=== PATIENT | female | born 1965 | race Caucasian/White ===

== ENCOUNTER 2021-05-29 19:06 | Emergency (ER) | payer OTHER ==
--- NOTE | 2021-05-29 19:40 | Diagnostic Imaging Report ---
CHEST 1 VIEW, AP/PA ONLY Indication: Cough Comparison: None available. Findings: No focal airspace disease in the visualized lungs. Please note that the posterior lower lobes are poorly evaluated by portable radiography. No pleural effusion or pneumothorax. Normal cardiomediastinal silhouette. Azygous fissure is noted in the medial aspect right upper lung zone. Impression: 1. No acute cardiopulmonary process by portable radiography. Dictated by: Dictated on workstation # [id number]
[2021-05-29] MEDS: LACTATED RINGERS 1,000 ML IV ONE (19:43)
[2021-05-29 19:48] LABS: BASOPHILS # (AUTO) 0.1 10^3/uL (0.0-0.1); BASOPHILS % (AUTO) 1 % (0-10); EOSINOPHILS # (AUTO) 0.3 10^3/uL (0.0-0.3); EOSINOPHILS % (AUTO) 2 % (0-10); HEMATOCRIT 40 % (35-52); HEMOGLOBIN 13.2 g/dL (11.5-16.0); LYMPHOCYTES # (AUTO) 3.7 10^3/uL (1.0-4.0); LYMPHOCYTES % (AUTO) 36 % (12-44); MEAN CORPUSCULAR HEMOGLOBIN 31 pg (25-34); MEAN CORPUSCULAR HGB CONC 33 g/dL (32-36); MEAN CORPUSCULAR VOLUME 94 fL (80-99); MEAN PLATELET VOLUME 9.7 fL (9.0-12.2); MONOCYTES % (AUTO) 10 % (0-12); NEUTROPHILS # (AUTO) 5.3 10^3/uL (1.8-7.8); NEUTROPHILS % (AUTO) 51 % (42-75); PLATELET COUNT 402 10^3/uL (130-400); WHITE BLOOD COUNT 10.3 10^3/uL (4.3-11.0)
[2021-05-29 19:56] LABS: ALBUMIN 4.1 GM/DL (3.2-4.5)
[2021-05-29 19:57] LABS: CHLORIDE 105 MMOL/L (98-107); POTASSIUM 3.9 MMOL/L (3.6-5.0); SODIUM 144 MMOL/L (135-145)
[2021-05-29 19:58] LABS: CALCIUM 9.9 MG/DL (8.5-10.1)
[2021-05-29 19:59] LABS: GLUCOSE 101 MG/DL (70-105)
[2021-05-29 20:00] LABS: CARBON DIOXIDE 27 MMOL/L (21-32)
[2021-05-29 20:01] LABS: BILIRUBIN,TOTAL 0.3 MG/DL (0.1-1.0)
[2021-05-29 20:02] LABS: ALKALINE PHOSPHATASE 78 U/L (40-136)
[2021-05-29 20:03] LABS: CREATININE SERUM 0.74 MG/DL (0.60-1.30); GFR ESTIMATED 82
[2021-05-29 20:04] LABS: BUN/CREATININE RATIO 16
[2021-05-29 20:05] LABS: MAGNESIUM 1.8 MG/DL (1.6-2.4)
[2021-05-29 20:06] LABS: ALANINE AMINOTRANSFERASE 21 U/L (0-55)
--- NOTE | 2021-05-29 20:51 | ED Respiratory ---
General Chief Complaint: Cough/Cold/Flu Symptoms Stated Complaint: COUGH / SOA / CP / O2: 80S Nursing Triage Note: TO ED VIA POV AND AMBULATORY TO ROOM 10 NEGATIVE PRESSURE FOR COVID PUI PRECAUTIONS R/T PERSISTANT COUGH FOR 3 WEEKS. PT STATES SHE HAS TRIED TESSLON PERLES, OTC MEDS WITHOUT RELIEF. PT HAS BEEN FULLY VACCINATED SINCE SEPTEMBER 2020 AND DOES CURRENTLY WORK IN A [employer] IN [place], [place]. PT DENIES CONTINUOUS CP, BUT CHEST DISCOMFORT WITH COUGHING. Source: patient Exam Limitations: no limitations History of Present Illness Date Seen by Provider: May 29, 2021 Time Seen by Provider: 19:22 Initial Comments Here with report of cough for the last 3 weeks but worsened over the last s everal days. She has had a negative Covid test 3 weeks ago. She does work in a [place] [facility] and they did have an outbreak there but she has remained clear throughout that. She was vaccinated in September. Does have history of asthma and bronchitis. Denies fever currently. States appetite down but she is still drinking. She retains taste and smell. Does complain of central chest discomfort with cough. Denies vomiting or diarrhea. Timing/Duration: getting worse, other (3 weeks) Severity: moderate Prior Episodes/Possible Cause: occasional episodes Modifying Factors: Worse With Coughing; Improves With Rest Associated Symptoms: chest pain/soreness, cough; No fever/chills, No muscle aches; nasal congestion, shortness of breath, sore throat Allergies and Home Medications Allergies Coded Allergies: acetaminophen (Verified Allergy, Unknown, 05/29/21) alprazolam (Verified Allergy, Unknown, 05/29/21) amlodipine (Verified Allergy, Unknown, 05/29/21) bacitracin (Verified Allergy, Unknown, 05/29/21) carvedilol (Verified Allergy, Unknown, 05/29/21) neomycin (Verified Allergy, Unknown, 05/29/21) polymyxin B (Verified Allergy, Unknown, 05/29/21) tramadol (Verified Allergy, Unknown, 05/29/21) Patient Home Medication List Home Medication List Reviewed: Yes Prednisone (Prednisone) 20 Mg Tab, 40 MG PO DAILY Prescribed by: BETO GONZALEZ on 05/29/212051 Review of Systems Review of Systems Constitutional: see HPI EENTM: see HPI Respiratory: cough, short of breath Cardiovascular: no symptoms reported Gastrointestinal: no symptoms reported Genitourinary: no symptoms reported Musculoskeletal: no symptoms reported All Other Systems Reviewed Negative Unless Noted: Yes Past Pliahqi-Jktlfv-Ubusat Hx Patient Social History Tobacco Use?: No Substance use?: No Alcohol Use?: No Immunizations Up To Date Second COVID19 Vaccination [place]: SEPTEMBER 2020 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 oz. kg; BMI Method: General Appearance: WD/WN, no apparent distress HEENT: PERRL/EOMI, pharynx normal Neck: full range of motion, supple Respiratory: lungs clear, normal breath sounds, other (Coarse breath sounds with cough) Cardiovascular: no murmur, tachycardia Gastrointestinal: non tender, soft Extremities: non-tender, normal inspection Neurologic/Psychiatric: alert, oriented x 3 Skin: normal color, warm/dry Progress/Results/Core Measures Suspected Sepsis SIRS Temperature: Pulse: 115 Respiratory Rate: 20 Laboratory Tests 05/29/21 19:30: White Blood Count 10.3 Blood Pressure 184 /96 Mean: 125 Laboratory Tests 05/29/21 19:30: Creatinine 0.74, Platelet Count 402H, Total Bilirubin 0.3 Results/Orders Lab Results Laboratory Tests Test 05/29/21 19:30 05/29/21 19:33 Range/Units White Blood Count 10.3 4.3-11.0 10^3/uL Red Blood Count 4.21 3.80-5.11 10^6/uL Hemoglobin 13.2 11.5-16.0 g/dL Hematocrit 40 35-52 % Mean Corpuscular Volume 94 80-99 fL Mean Corpuscular Hemoglobin 31 25-34 pg Mean Corpuscular Hemoglobin Concent 33 32-36 g/dL Red Cell Distribution Width 12.2 10.0-14.5 % Platelet Count 402 H 130-400 10^3/uL Mean Platelet Volume 9.7 9.0-12.2 fL Immature Granulocyte % (Auto) 0 % Neutrophils (%) (Auto) 51 42-75 % Lymphocytes (%) (Auto) 36 12-44 % Monocytes (%) (Auto) 10 0-12 % Eosinophils (%) (Auto) 2 0-10 % Basophils (%) (Auto) 1 0-10 % Neutrophils # (Auto) 5.3 1.8-7.8 10^3/uL Lymphocytes # (Auto) 3.7 1.0-4.0 10^3/uL Monocytes # (Auto) 1.0 0.0-1.0 10^3/uL Eosinophils # (Auto) 0.3 0.0-0.3 10^3/uL Basophils # (Auto) 0.1 0.0-0.1 10^3/uL Immature Granulocyte # (Auto) 0.0 0.0-0.1 10^3/uL D-Dimer < 0.27 0.00-0.49 UG/ML Sodium Level 144 135-145 MMOL/L Potassium Level 3.9 3.6-5.0 MMOL/L Chloride Level 105 98-107 MMOL/L Carbon Dioxide Level 27 21-32 MMOL/L Anion Gap 12 5-14 MMOL/L Blood Urea Nitrogen 12 7-18 MG/DL Creatinine 0.74 0.60-1.30 MG/DL Estimat Glomerular Filtration Rate 82 BUN/Creatinine Ratio 16 Glucose Level 101 70-105 MG/DL Calcium Level 9.9 8.5-10.1 MG/DL Corrected Calcium 9.8 8.5-10.1 MG/DL Magnesium Level 1.8 1.6-2.4 MG/DL Total Bilirubin 0.3 0.1-1.0 MG/DL Aspartate Amino Transf (AST/SGOT) 18 5-34 U/L Alanine Aminotransferase (ALT/SGPT) 21 0-55 U/L Alkaline Phosphatase 78 40-136 U/L Troponin I < 0.028 <0.028 NG/ML C-Reactive Protein High Sensitivity 2.22 H 0.00-0.50 MG/DL Total Protein 8.0 6.4-8.2 GM/DL Albumin 4.1 3.2-4.5 GM/DL My Orders Orders - BETO GONZALEZ MD Cbc With Automated Diff (05/29/21 19:31) Comprehensive Metabolic Panel (05/29/21 19:31) Hs C Reactive Protein (05/29/21 19:31) Fibrin Degradation Products (05/29/21 19:31) Magnesium (05/29/21 19:31) Troponin I (05/29/21 19:31) Ed Iv/Invasive Line Start (05/29/21 19:31) Lactated Ringers (Lr 1000 Ml Iv Solution (05/29/21 19:45) Ekg Tracing (05/29/21 19:31) Coronavirus Sars-Cov-2 So 2018 (05/29/21 19:31) Prednisone Tablet (Deltasone Tablet) (05/29/21 20:45) Rx-Albuterol Inhaler (Rx-Ventolin Hfa In (05/29/21 20:45) Medications Given in ED Current Medications Medications Dose Ordered Sig/Alia Route Start Time Stop Time Status Last Admin Dose Admin Lactated Ringer's 1,000 ml @ 0 mls/hr Q0M ONCE IV 05/29/21 19:45 05/29/21 19:46 DC 05/29/21 19:43 999 MLS/HR Vital Signs/I&O 05/29/21 19:14 Temp 37.0 Pulse 115 Resp 20 B/P (MAP) 184/96 (125) Pulse Ox 98 O2 Delivery Room Air Capillary Refill : Less Than 3 Seconds Blood Pressure Mean: 125 Progress Note : Progress Note Seen and evaluated. IV, labs, LR 1 L bolus, Covid test send out ordered. EKG ordered. Monitor patient. 2048: EKG negative. Labs do not show any significant abnormalities. Covid test pending. Chest x-ray normal. Prednisone 40 mg p.o. ordered and we will continue that for 4 more days. Albuterol MDI go pack given. I did give her instructions regarding PUI for COVID-19. Discharged home with return precautions. Patient verbalized understanding of instructions and agreement with plan. Diagnostic Imaging Diagonstic Imaging: Xray Plain Films/CT/US/NM/MRI: chest Comments [facility]. 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 Findings: No focal airspace disease in the visualized lungs. Please note that the posterior lower lobes are poorly evaluated by portable radiography. No pleural effusion or pneumothorax. Normal cardiomediastinal silhouette. Azygous fissure is noted in the medial aspect right upper lung zone. Impression: 1. No acute cardiopulmonary process by portable radiography. Dictated by: Dictated on workstation # [id number] Dict: 05/29/211937 Trans: 05/29/211938 [facility] [id number] Interpreted by: SANDRA TIM MD Electronically signed by: SANDRA TIM MD 05/29/211938 Departure Impression Primary Impression: Bronchitis Additional Impression: Person under investigation for COVID-19 Disposition: 01 HOME, SELF-CARE Condition: Improved Departure-Patient Inst. Decision time for Depature: 20:49 Referrals: BEN LAKHANI MD (PCP) Primary Care Physician MAK SALDAÑA (Family) Primary Care Physician Patient Instructions: Acute Bronchitis, Adult (DC) Add. Discharge Instructions: All discharge instructions reviewed with patient and/or family. Voiced understanding. Take medications as directed. Follow-up with your doctor in a few days for recheck. Return for worse pain, fever, vomiting, weakness, breathing problems or other concerns as needed. Drink plenty of fluids and get plenty of rest. You will need to remain isolated until test results are noted. If they are negative, you will need remain isolated for 24 hours after symptoms resolve. If they are positive, the health department will call you and direct quarantine/isolation timeframe. You may take ibuprofen 600 mg every 8 hours as needed for fever or pain. You may take Tylenol/acetaminophen 1000 mg every 8 hours as needed for fever or pain. Scripts Prednisone (Prednisone) 20 Mg Tab 40 MG PO DAILY, #8 TAB 0 Refills Prov: BETO GONZALEZ MD 05/29/21 Work/School Note: Work Release Form Date Seen in the Emergency Department: May 29, 2021 Return to Work: May 31, 2021 Restrictions: Return-No Fever (24hrs) Other Restrictions Listed Below: Need neg covid test results BETO GONZALEZ MD May 29, 2021 20:51
[2021-05-29] MEDS ORDERED: PRD20T PO (20:52)
[2021-05-29] MEDS: RX-ALBUTEROL INHALER 8.5 GM HFA (PROAIR) IH PRN (21:14)
[2021-05-29] MEDS: predniSONE 20 MG TAB PO ONE (21:14)
[2021-05-29 21:22] VITALS: BP 159/88
== END 2021-05-29 21:22 | disposition home or self-care (01) ==
LOC: EDUNIT# 19:06 → ER 19:10
DX: J40 Bronchitis, not specified as acute or chronic (principal); I10 Essential (primary) hypertension; Z20.822 Contact with and (suspected) exposure to COVID-19
CPT/HCPCS: 36415; 71045; 80053; 83735; 84484; 85025; 85379; 86141; 87635; 93005